=== PATIENT | male | born 1970 | race Caucasian/White ===

== ENCOUNTER → 2017-05-13 | Outpatient (CLI) | payer BC ==
[2017-05-13 10:13] LABS: CALCIUM 8.8 mg/dL (8.4-10.2); POTASSIUM 4.1 mmol/L (3.4-5.0)
== END ==
LOC: COL.LAB 09:09
PROVIDERS: Internal Medicine
DX: N18.1 Chronic kidney disease, stage 1 (principal); R80.8 Other proteinuria; Z90.5 Acquired absence of kidney
CPT/HCPCS: Q9967